=== PATIENT | female | born 1985 | race Caucasian/White ===

== ENCOUNTER 2016-09-05 10:54 | Emergency (ER) | payer OTHER ==
[~2016-09-05] VITALS: Ht 160 cm; Wt 72.6 kg
[2016-09-05] MEDS ORDERED: KETOROLAC TROMETHAMINE INJ 30 MG/ML VIAL ONE (11:27)
[2016-09-05] MEDS ORDERED: HYDROCODONE/APAP 5/325MG 1 EACH TABLET ONE (11:27)
[2016-09-05] MEDS ORDERED: KETOROLAC TROMETHAMINE INJ 60 MG/2 ML VIAL IM ONE (11:30)
[2016-09-05] MEDS ORDERED: HYDROCODONE/APAP 5/325MG 1 EACH TABLET PO ONE (11:30)
[2016-09-05 12:43] VITALS: BP 138/89
== END 2016-09-05 12:49 | disposition home or self-care (01) ==
LOC: ER 10:58
DX: R51 Headache (principal); J45.909 Unspecified asthma, uncomplicated
CPT/HCPCS: A4606; J1885; Z7610